=== PATIENT | male | born 1995 | race African-American/Black ===

== ENCOUNTER 2016-08-19 09:57 | Inpatient (IN) | payer OTHER ==
[2016-08-19 10:25] VITALS: BMI 25.0
--- NOTE | 2016-08-19 13:46 | HP ---
CIWA Score - CIWA Score Nausea/Vomitin-No Nausea/No Vomiting Muscle Tremors: 4-Moderate,w/Arms Extend Anxiety: 3 Agitation: 3 Paroxysmal Sweats: 3 Orientation: 0-Oriented Tacttile Disturbances: 0-None Auditory Disturbances: 0-None Visual Disturbances: 0-None Headache: 0-None Present CIWA-Ar Total Score: 13 Admission ROS BHS - HPI Chief Complaint: I need to stop drinking before it gets too late and cant stop. Allergies/Adverse Reactions: Allergies Allergy/AdvReac Type Severity Reaction Status Date / Time No Known Allergies Allergy Verified 08/19/16 13:40 History of Present Illness: pt is a 21yr old male with a history of alcohol and cannabis dependence seeking detox for treatment. Exam Limitations: No Limitations - Ebola screening Have you traveled outside of the country in the last 21 days: No Have you had contact with anyone from an Ebola affected area: No Have you been sick,other than usual withdrawal symptoms: No Do you have a fever: No - Review of Systems Constitutional: Loss of Appetite, Changes in sleep, Unintentional Wgt. Loss EENT: reports: No Symptoms Reported Respiratory: reports: No Symptoms reported Cardiac: reports: No Symptoms Reported GI: reports: Poor Appetite, Poor Fluid Intake : reports: No Symptoms Reported Integumentary: reports: No Symptoms Reported, Flushing, Rash (around his pubic area after shaving) Neuro: reports: Tingling, Tremors Endocrine: reports: Excessive Sweating, Flushing, Intolerance to Cold, Intolerance to Heat Hematology: reports: No Symptoms Reported Psychiatric: reports: No Sypmtoms Reported, Judgement Intact, Mood/Affect Appropiate, Orientated x3, Agitated, Anxious Other Systems: Reviewed and Negative Patient History - Patient Medical History Hx Anemia: No Hx Asthma: No Hx Chronic Obstructive Pulmonary Disease (COPD): No Hx Cancer: No Hx Cardiac Disorders: No Hx Congestive Heart Failure: No Hx Hypertension: No Hx Hypercholesterolemia: No Hx Pacemaker: No HX Cerebrovascular Accident: No Hx Seizures: No Hx Dementia: No Hx Diabetes: No Hx Gastrointestinal Disorders: No Hx Liver Disease: No Hx Genitourinary Disorders: No Hx Sexually Transmitted Disorders: No Hx Renal Disease (ESRD): No Hx Thyroid Disease: No Hx Human Immunodeficiency Virus (HIV): No (negative ) Hx Hepatitis C: No (negative) Hx Depression: Yes Hx Suicide Attempt: No (denies) Hx Bipolar Disorder: Yes Hx Schizophrenia: No - Patient Surgical History Past Surgical History: No Hx Neurologic Surgery: No Hx Cataract Extraction: No Hx Cardiac Surgery: No Hx Lung Surgery: No Hx Breast Surgery: No Hx Breast Biopsy: No Hx Abdominal Surgery: No Hx Appendectomy: No Hx Cholecystectomy: No Hx Genitourinary Surgery: No Hx Section: No Hx Orthopedic Surgery: No Anesthesia Reaction: No - PPD History Previous Implant?: Yes Documented Results: Negative w/o proof Implanted On Prior [facility] Admission?: No PPD to be Administered?: Yes - Reproductive History Patient is a Female of Child Bearing Age (11 -55 yrs old): No - Smoking Cessation Smoking history: Current every day smoker Have you smoked in the past 12 months: Yes Aproximately how many cigarettes per day: 10 Hx Chewing Tobacco Use: No Initiated information on smoking cessation: Yes 'Breaking Loose' booklet given: 08/19/16 - Substance & Tx. History Hx Alcohol Use: Yes Hx Substance Use: Yes Substance Use Type: Alcohol, Marijuana Hx Substance Use Treatment: No - Substances Abused Alcohol-beer/cognac Route: Oral Frequency: Daily Amount used: 3-6 pks./2 pts. Age of first use: 20 Date of Last Use: 08/19/16 Marijuana Route: Smoking Frequency: Daily Amount used: $50 Age of first use: 9 Date of Last Use: 08/19/16 Family Disease History - Family Disease History Family Disease History: Diabetes: Mother Admission Physical Exam BHS - Vital Signs Vital Signs: Vital Signs - 24 hr 08/19/16 10:22 Temperature 96.6 F L Pulse Rate 68 Respiratory 18 Rate Blood Pressure 119/75 - Physical General Appearance: Yes: Appropriately Dressed, Moderate Distress, Tremorous, Irritable, Sweating, Anxious HEENTM: Yes: Hearing grossly Normal Respiratory: Yes: Lungs Clear, Normal Breath Sounds, No Respiratory Distress Neck: Yes: No masses,lesions,Nodules Breast: Yes: Within Normal Limits Cardiology: Yes: Regular Rhythm, Regular Rate, S1, S2 Abdominal: Yes: Normal Bowel Sounds, Non Tender Genitourinary: Yes: Within Normal Limits Back: Yes: Normal Inspection Musculoskeletal: Yes: full range of Motion Extremities: Yes: Normal Capillary Refill, Normal Inspection, Tremors Neurological: Yes: Fully Oriented, Alert, Normal Response Integumentary: Yes: Normal Color Lymphatic: Yes: Within Normal Limits - Diagnostic (1) Alcohol dependence with uncomplicated withdrawal Current Visit: Yes Status: Chronic (2) Cannabis dependence Current Visit: Yes Status: Chronic (3) Nicotine dependence Current Visit: Yes Status: Chronic Qualifiers: Nicotine product type: cigarettes Substance use status: uncomplicated Qualified Code(s): F17.210 - Nicotine dependence, cigarettes, uncomplicated Cleared for Admission [facility] - Detox or Rehab [facility] Level of Care: Medically Managed Detox Regimen/Protocol: Librium [facility] Breath Alcohol Content Breath Alcohol Content: 0 Urine Drug Screen - Results Drug Screen Negative: No Urine Drug Screen Results: THC-Marijuana
[2016-08-19] MEDS ORDERED: MAG HYDROX/AL HYDROX/SIMETH 30 ML UNIT-DOSE CUP PO PRN (13:48)
[2016-08-19] MEDS ORDERED: ACETAMINOPHEN 325 MG TABLET (FP) PO PRN (13:48)
[2016-08-19] MEDS ORDERED: MENTHOL/PHENOL 1 EACH UD MM PRN (13:48)
[2016-08-19] MEDS ORDERED: NICOTINE POLACRILEX 4 MG GUM BC PRN (13:48)
[2016-08-19] MEDS ORDERED: MAGNESIUM CITRATE 300 ML BOTTLE PO PRN (13:48)
[2016-08-19] MEDS ORDERED: chlordiazePOXIDE HCL 25 MG CAPSULE PO PRN (13:48)
[2016-08-19] MEDS ORDERED: LOPERAMIDE HCL 2 MG CAPSULE PO PRN (13:48)
[2016-08-19] MEDS ORDERED: MAGNESIUM HYDROX 2400MG/30ML ORAL SUSPENSION 30 ML CUP PO PRN (13:48)
[2016-08-19] MEDS ORDERED: P-EPHED 60MG/TRIPROLIDI 2.5MG TABLET PO PRN (13:48)
[2016-08-19] MEDS ORDERED: IBUPROFEN 400 MG TABLET (FP) PO PRN (13:48)
[2016-08-19] MEDS ORDERED: hydrOXYzine PAMOATE 50 MG CAPSULE (FP) PO PRN (13:48)
[2016-08-19] MEDS ORDERED: guaiFENesin/D-METHORPHAN HB 10 ML UNIT-DOSE CUPS PO PRN (13:48)
[2016-08-19] MEDS ORDERED: chlordiazePOXIDE HCL 25 MG CAPSULE PO ONE (14:15)
[2016-08-19 14:38] LABS: HIV 1 & 2 AB NEGATIVE; HIV 1 AGp24 NEGATIVE
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
[2016-08-19] MEDS: chlordiazePOXIDE HCL 25 MG CAPSULE PO SCH ×2 (17:20→22:32)
[2016-08-19 20:37] LABS: URINE APPEARANCE CLEAR; URINE BILIRUBIN NEGATIVE (NEGATIVE); URINE BLOOD NEGATIVE (NEGATIVE); URINE COLOR LTYELLOW; URINE GLUCOSE (UA) NEGATIVE (NEGATIVE); URINE KETONE NEGATIVE (NEGATIVE); URINE LEUK ESTERASE NEGATIVE (NEGATIVE); URINE NITRITE NEGATIVE (NEGATIVE); URINE PROTEIN NEGATIVE (NEGATIVE); URINE UROBILINOGEN NEGATIVE E.U./dl (0.2-1.0)
[2016-08-19] MEDS: THIAMINE HCL 100 MG TABLET (FP) PO SCH (22:32)
[2016-08-20] MEDS: chlordiazePOXIDE HCL 25 MG CAPSULE PO SCH ×5 (05:49→22:42)
--- NOTE | 2016-08-20 09:37 | PN ---
[facility] CIWA - CIWA Score Nausea/Vomitin-No Nausea/No Vomiting Muscle Tremors: 3 Anxiety: 3 Agitation: 4-Moderately Restless Paroxysmal Sweats: 3 Orientation: 0-Oriented Tacttile Disturbances: 0-None Auditory Disturbances: 0-None Visual Disturbances: 0-None Headache: 0-None Present CIWA-Ar Total Score: 13 S Progress Note (SOAP) Subjective: Anxiety,tremors,sweating,interrupted sleep,restless Objective: 08/20/16 09:36 Vital Signs - 8 hr 08/20/16 08/20/16 08/20/16 03:23 06:33 09:32 Temperature 97.2 F L 96.2 F L Pulse Rate 56 L 82 Respiratory 18 16 20 Rate Blood Pressure 119/66 124/62 Laboratory Tests 08/19/16 08/19/16 12:30 19:30 Urine Color Ltyellow Urine Appearance Clear Urine pH 6.0 Ur Specific [place] 1.017 Urine Protein Negative Urine Glucose (UA) Negative Urine Ketones Negative Urine Blood Negative Urine Nitrite Negative Urine Bilirubin Negative Urine Urobilinogen Negative Ur Leukocyte Esterase Negative HIV 1&2 Antibody Screen Negative HIV P24 Antigen Negative labs noted Assessment: 08/20/16 09:37 Withdrawal sx. Plan: Continue detox
[2016-08-20 10:02] LABS: MCH 30.5 pg (25.7-33.7); MCHC 32.7 g/dl (32.0-35.9); MEAN CELL VOLUME 93.2 fl (80-96); MEAN PLT VOLUME 11.8 fl (7.5-11.1); PLATELET COUNT 132 K/MM3 (134-434); RDW 15.8 % (11.9-15.9); WHITE BLOOD COUNT 4.5 K/mm3 (4.0-10.0)
[2016-08-20] MEDS: PRENATAL VITAMINS W/ FOLIC ACID TABLET (FP) PO SCH (10:55)
[2016-08-20 11:20] LABS: ALBUMIN 4.2 g/dl (3.4-5.0); ALK PHOS 72 U/L (45-117); ANION GAP 7 (8-16); BILIRUBIN,TOTAL 0.7 mg/dL (0.2-1.0); CALCIUM 9.5 mg/dL (8.5-10.1); CO2 30 mmol/L (21-32); CREATININE 1.1 mg/dL (0.7-1.3); GLUCOSE,RANDOM 84 mg/dL (74-106); SGOT/AST 18 U/L (15-37); SGPT/ALT 25 U/L (12-78); TOT PROT 7.4 g/dl (6.4-8.2)
--- NOTE | 2016-08-20 17:18 | EKG ---
Test Reason : Blood Pressure : / mmHG Vent. Rate : 045 BPM Atrial Rate : 045 BPM P-R Int : 160 ms QRS Dur : 110 ms QT Int : 414 ms P-R-T Axes : 054 084 061 degrees QTc Int : 358 ms SINUS BRADYCARDIA OTHERWISE NORMAL ECG NO PREVIOUS ECGS AVAILABLE Confirmed by ALIS ALLEN MD ([id number]) on 08/20/2016 5:17:48 PM Referred By: Ceferino Marroquin Confirmed By:ALIS ALLEN MD
[2016-08-20] MEDS: THIAMINE HCL 100 MG TABLET (FP) PO SCH (22:42)
[2016-08-20] MEDS: diphenhydrAMINE HCL 50 MG CAPSULE PO PRN (22:42)
[2016-08-21] MEDS: chlordiazePOXIDE HCL 25 MG CAPSULE PO SCH ×2 (06:00→10:30)
[2016-08-21] MEDS: PRENATAL VITAMINS W/ FOLIC ACID TABLET (FP) PO SCH (10:29)
--- NOTE | 2016-08-21 12:59 | PN ---
[facility] CIWA - CIWA Score Nausea/Vomitin-No Nausea/No Vomiting Muscle Tremors: 2 Anxiety: 2 Agitation: 4-Moderately Restless Paroxysmal Sweats: 2 Orientation: 1-Uncertain about Date Tacttile Disturbances: 3-Moderate Itch/Numb/Burn Auditory Disturbances: 0-None Visual Disturbances: 0-None Headache: 0-None Present CIWA-Ar Total Score: 14 S Progress Note (SOAP) Subjective: Fatigue, Tremors. Objective: PT. A & O X 3 , OBSERVED AMBULATING ON UNIT. 08/21/16 12:58 Vital Signs Temperature 98.2 F 08/21/16 10:47 Pulse Rate 74 08/21/16 10:47 Respiratory Rate 18 08/21/16 10:47 Blood Pressure 123/68 08/21/16 10:47 O2 Sat by Pulse Oximetry (%) Laboratory Last Values WBC 4.5 K/mm3 (4.0-10.0) 08/20/16 06:00 RBC 5.03 M/mm3 (4.00-5.60) 08/20/16 06:00 Hgb 15.3 GM/dL (11.7-16.9) 08/20/16 06:00 Hct 46.9 % (35.4-49) 08/20/16 06:00 MCV 93.2 fl (80-96) 08/20/16 06:00 MCHC 32.7 g/dl (32.0-35.9) 08/20/16 06:00 RDW 15.8 % (11.9-15.9) 08/20/16 06:00 Plt Count 132 K/MM3 (134-434) L 08/20/16 06:00 MPV 11.8 fl (7.5-11.1) H 08/20/16 06:00 Sodium 143 mmol/L (136-145) 08/20/16 06:00 Potassium 4.1 mmol/L (3.5-5.1) 08/20/16 06:00 Chloride 106 mmol/L (98-107) 08/20/16 06:00 Carbon Dioxide 30 mmol/L (21-32) 08/20/16 06:00 Anion Gap 7 (8-16) L 08/20/16 06:00 BUN 8 mg/dL (7-18) 08/20/16 06:00 Creatinine 1.1 mg/dL (0.7-1.3) 08/20/16 06:00 Creat Clearance w eGFR > 60 (>60) 08/20/16 06:00 Random Glucose 84 mg/dL (74-106) 08/20/16 06:00 Calcium 9.5 mg/dL (8.5-10.1) 08/20/16 06:00 Total Bilirubin 0.7 mg/dL (0.2-1.0) 08/20/16 06:00 AST 18 U/L (15-37) 08/20/16 06:00 ALT 25 U/L (12-78) 08/20/16 06:00 Alkaline Phosphatase 72 U/L (45-117) 08/20/16 06:00 Total Protein 7.4 g/dl (6.4-8.2) 08/20/16 06:00 Albumin 4.2 g/dl (3.4-5.0) 08/20/16 06:00 Urine Color Ltyellow 08/19/16 19:30 Urine Appearance Clear 08/19/16 19:30 Urine pH 6.0 (5.0-8.0) 08/19/16 19:30 Ur Specific [place] 1.017 (1.001-1.035) 08/19/16 19:30 Urine Protein Negative (NEGATIVE) 08/19/16 19:30 Urine Glucose (UA) Negative (NEGATIVE) 08/19/16 19:30 Urine Ketones Negative (NEGATIVE) 08/19/16 19:30 Urine Blood Negative (NEGATIVE) 08/19/16 19:30 Urine Nitrite Negative (NEGATIVE) 08/19/16 19:30 Urine Bilirubin Negative (NEGATIVE) 08/19/16 19:30 Urine Urobilinogen Negative E.U./dl (0.2-1.0) 08/19/16 19:30 Ur Leukocyte Esterase Negative (NEGATIVE) 08/19/16 19:30 RPR Titer Nonreactive (NONREACTIVE) 08/20/16 06:00 HIV 1&2 Antibody Screen Negative 08/19/16 12:30 HIV P24 Antigen Negative 08/19/16 12:30 LABS NOTED. Assessment: 08/21/16 12:59 WITHDRAWAL SYMPTOMS. Plan: CONTINUE DETOX. ADVISED PATIENT TO FOLLOW-UP WITH [facility] / REHAB MEDICAL PROVIDER AFTER DISCHARGE FROM DETOX FOR GENERAL MEDICAL ASSESSMENT AND FOR ANY ABNORMAL ADMISSION LAB VALUES.
[2016-08-21] MEDS: AMMONIUM LACTATE 12% LOTION 225 GM BOTTLE TP SCH ×2 (13:44→22:38)
[2016-08-21] MEDS: chlordiazePOXIDE 5 MG CAPSULE PO SCH ×2 (17:35→22:39)
[2016-08-21] MEDS: THIAMINE HCL 100 MG TABLET (FP) PO SCH (22:38)
[2016-08-21] MEDS: diphenhydrAMINE HCL 50 MG CAPSULE PO PRN (22:39)
[2016-08-22] MEDS: chlordiazePOXIDE 5 MG CAPSULE PO SCH ×2 (06:57→10:51)
[2016-08-22 09:34] VITALS: BP 114/73; PULSE 50; TEMP 96
--- NOTE | 2016-08-22 10:12 | DS ---
[facility] Detox Discharge Summary Admission Date: 08/19/16 Discharge Date: 08/22/16 - History Present History: Alcohol Dependence, Cannabis Dependence Pertinent Past History: denies - Physical Exam Results Vital Signs: Vital Signs Temperature 96 F L 08/22/16 09:33 Pulse Rate 50 L 08/22/16 09:33 Respiratory Rate 20 08/22/16 09:33 Blood Pressure 114/73 08/22/16 09:33 O2 Sat by Pulse Oximetry (%) Pertinent Admission Physical Exam Findings: Withdrawal sx. Laboratory Last Values WBC 4.5 K/mm3 (4.0-10.0) 08/20/16 06:00 RBC 5.03 M/mm3 (4.00-5.60) 08/20/16 06:00 Hgb 15.3 GM/dL (11.7-16.9) 08/20/16 06:00 Hct 46.9 % (35.4-49) 08/20/16 06:00 MCV 93.2 fl (80-96) 08/20/16 06:00 MCHC 32.7 g/dl (32.0-35.9) 08/20/16 06:00 RDW 15.8 % (11.9-15.9) 08/20/16 06:00 Plt Count 132 K/MM3 (134-434) L 08/20/16 06:00 MPV 11.8 fl (7.5-11.1) H 08/20/16 06:00 Sodium 143 mmol/L (136-145) 08/20/16 06:00 Potassium 4.1 mmol/L (3.5-5.1) 08/20/16 06:00 Chloride 106 mmol/L (98-107) 08/20/16 06:00 Carbon Dioxide 30 mmol/L (21-32) 08/20/16 06:00 Anion Gap 7 (8-16) L 08/20/16 06:00 BUN 8 mg/dL (7-18) 08/20/16 06:00 Creatinine 1.1 mg/dL (0.7-1.3) 08/20/16 06:00 Creat Clearance w eGFR > 60 (>60) 08/20/16 06:00 Random Glucose 84 mg/dL (74-106) 08/20/16 06:00 Calcium 9.5 mg/dL (8.5-10.1) 08/20/16 06:00 Total Bilirubin 0.7 mg/dL (0.2-1.0) 08/20/16 06:00 AST 18 U/L (15-37) 08/20/16 06:00 ALT 25 U/L (12-78) 08/20/16 06:00 Alkaline Phosphatase 72 U/L (45-117) 08/20/16 06:00 Total Protein 7.4 g/dl (6.4-8.2) 08/20/16 06:00 Albumin 4.2 g/dl (3.4-5.0) 08/20/16 06:00 Urine Color Ltyellow 08/19/16 19:30 Urine Appearance Clear 08/19/16 19:30 Urine pH 6.0 (5.0-8.0) 08/19/16 19:30 Ur Specific [place] 1.017 (1.001-1.035) 08/19/16 19:30 Urine Protein Negative (NEGATIVE) 08/19/16 19:30 Urine Glucose (UA) Negative (NEGATIVE) 08/19/16 19:30 Urine Ketones Negative (NEGATIVE) 08/19/16 19:30 Urine Blood Negative (NEGATIVE) 08/19/16 19:30 Urine Nitrite Negative (NEGATIVE) 08/19/16 19:30 Urine Bilirubin Negative (NEGATIVE) 08/19/16 19:30 Urine Urobilinogen Negative E.U./dl (0.2-1.0) 08/19/16 19:30 Ur Leukocyte Esterase Negative (NEGATIVE) 08/19/16 19:30 RPR Titer Nonreactive (NONREACTIVE) 08/20/16 06:00 HIV 1&2 Antibody Screen Negative 08/19/16 12:30 HIV P24 Antigen Negative 08/19/16 12:30 labs noted - Treatment Hospital Course: Detox Protocol Followed, Detoxed Safely, Responded well, Discharged Condition Good, Rehab Referral Accepted Patient has Accepted a Rehab Referral to: Pt. is going to our Rehab today ( [facility]). - Medication Discharge Medications: Ambulatory Orders NK [No Known Home Medication] 08/20/16 - Diagnosis (1) Alcohol dependence with uncomplicated withdrawal Current Visit: Yes Status: Acute (2) Cannabis dependence Current Visit: Yes Status: Acute (3) Nicotine dependence Current Visit: Yes Status: Acute Qualifiers: Nicotine product type: cigarettes Substance use status: uncomplicated Qualified Code(s): F17.210 - Nicotine dependence, cigarettes, uncomplicated - AMA Did Patient Leave Against Medical Advice: No
[2016-08-22] MEDS: PRENATAL VITAMINS W/ FOLIC ACID TABLET (FP) PO SCH (10:51)
[2016-08-22] MEDS: AMMONIUM LACTATE 12% LOTION 225 GM BOTTLE TP SCH (10:52)
[2016-08-22] MEDS ORDERED: chlordiazePOXIDE HCL 10 MG CAPSULE PO SCH (17:00)
== END 2016-08-22 12:26 | disposition other institution (70) | DRG 774 ==
LOC: YASAS 09:57 → Y3N 12:07
PROVIDERS: ADMIT Internal Medicine Addiction Medicine; ATTEND Internal Medicine Addiction Medicine
PROC: HZ2ZZZZ Detoxification Services for Substance Abuse Treatment (ICD-10-PCS; principal; 2016-08-22)
DX: F10.230 Alcohol dependence with withdrawal, uncomplicated (principal); F14.20 Cocaine dependence, uncomplicated; F17.210 Nicotine dependence, cigarettes, uncomplicated
CPT/HCPCS: 36415; 80053; 81003; 85027; 86593; 87389; 93005; 93010

== ENCOUNTER 2016-08-22 13:41 | Inpatient (IN) | payer OTHER ==
[2016-08-22 14:12] VITALS: BMI 25.3
[2016-08-22] MEDS ORDERED: IBUPROFEN 400 MG TABLET (FP) PO PRN (15:10)
[2016-08-22] MEDS ORDERED: MAGNESIUM HYDROX 2400MG/30ML ORAL SUSPENSION 30 ML CUP PO PRN (15:10)
[2016-08-22] MEDS ORDERED: MENTHOL/PHENOL 1 EACH UD MM PRN (15:10)
[2016-08-22] MEDS ORDERED: LOPERAMIDE HCL 2 MG CAPSULE PO PRN (15:10)
[2016-08-22] MEDS ORDERED: ACETAMINOPHEN 325 MG TABLET (FP) PO PRN (15:10)
[2016-08-22] MEDS ORDERED: MAGNESIUM CITRATE 300 ML BOTTLE PO PRN (15:10)
[2016-08-22] MEDS ORDERED: guaiFENesin/D-METHORPHAN HB 10 ML UNIT-DOSE CUPS PO PRN (15:10)
[2016-08-22] MEDS ORDERED: P-EPHED 60MG/TRIPROLIDI 2.5MG TABLET PO PRN (15:10)
--- NOTE | 2016-08-22 15:12 | HP ---
[facility] Re[facility] Assess/Revision - Admission History Ad[facility] to Rehab [facility] Date of Admission to Rehab: 08/22/16 - Vital signs Vital Signs: Vital Signs Period Temp Pulse Resp BP Sys/King Pulse Ox Last 24 Hr 98.6 F 62 18 129/70 - Findings Detox History & Physical reviewed: Yes Concur with findings: Yes
[2016-08-22] MEDS: NICOTINE POLACRILEX 4 MG GUM BUC PRN ×2 (17:29→21:00)
[2016-08-22] MEDS: NICOTINE 21 MG/24 HOURS TOPICAL PATCH TD SCH (17:57)
[2016-08-22] MEDS: HYDROCORTISONE 1% TOPICAL CREAM 30 GM TUBE TP SCH ×2 (17:58→21:01)
[2016-08-22] MEDS: THIAMINE HCL 100 MG TABLET (FP) PO SCH (21:01)
[2016-08-23] MEDS: NICOTINE POLACRILEX 4 MG GUM BUC PRN ×2 (07:40→15:58)
[2016-08-23] MEDS: PRENATAL VITAMINS W/ FOLIC ACID TABLET (FP) PO SCH (09:05)
[2016-08-23] MEDS: NICOTINE 21 MG/24 HOURS TOPICAL PATCH TD SCH (09:06)
[2016-08-23] MEDS: HYDROCORTISONE 1% TOPICAL CREAM 30 GM TUBE TP SCH ×3 (09:06→21:21)
[2016-08-23] MEDS: diphenhydrAMINE HCL 50 MG CAPSULE PO PRN (21:21)
[2016-08-23] MEDS: THIAMINE HCL 100 MG TABLET (FP) PO SCH (21:21)
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
[2016-08-24] MEDS: NICOTINE POLACRILEX 4 MG GUM BUC PRN ×3 (08:40→21:15)
[2016-08-24] MEDS: PRENATAL VITAMINS W/ FOLIC ACID TABLET (FP) PO SCH (09:34)
[2016-08-24] MEDS: NICOTINE 21 MG/24 HOURS TOPICAL PATCH TD SCH (09:34)
[2016-08-24] MEDS: HYDROCORTISONE 1% TOPICAL CREAM 30 GM TUBE TP SCH ×4 (09:35→21:15)
[2016-08-24] MEDS ORDERED: PT OWN MED DRAWER 7, Y5N ONE (14:39)
[2016-08-24] MEDS: diphenhydrAMINE HCL 50 MG CAPSULE PO PRN (21:14)
[2016-08-24] MEDS: THIAMINE HCL 100 MG TABLET (FP) PO SCH (21:14)
[2016-08-25] MEDS: PRENATAL VITAMINS W/ FOLIC ACID TABLET (FP) PO SCH (09:42)
[2016-08-25] MEDS: NICOTINE 21 MG/24 HOURS TOPICAL PATCH TD SCH (09:42)
[2016-08-25] MEDS: NICOTINE POLACRILEX 4 MG GUM BUC PRN (09:42)
[2016-08-25] MEDS: HYDROCORTISONE 1% TOPICAL CREAM 30 GM TUBE TP SCH ×3 (09:42→22:15)
[2016-08-25] MEDS: THIAMINE HCL 100 MG TABLET (FP) PO SCH (21:08)
[2016-08-25] MEDS: QUEtiapine FUMARATE 100 MG TABLET (FP) PO SCH (21:08)
[2016-08-26] MEDS: NICOTINE POLACRILEX 4 MG GUM BUC PRN (09:39)
[2016-08-26] MEDS: NICOTINE 21 MG/24 HOURS TOPICAL PATCH TD SCH (09:39)
[2016-08-26] MEDS: PRENATAL VITAMINS W/ FOLIC ACID TABLET (FP) PO SCH (09:39)
[2016-08-26] MEDS: HYDROCORTISONE 1% TOPICAL CREAM 30 GM TUBE TP SCH ×4 (09:40→21:30)
[2016-08-26] MEDS: THIAMINE HCL 100 MG TABLET (FP) PO SCH (21:30)
[2016-08-26] MEDS: diphenhydrAMINE HCL 50 MG CAPSULE PO PRN (21:30)
[2016-08-26] MEDS: QUEtiapine FUMARATE 100 MG TABLET (FP) PO SCH (21:30)
[2016-08-27] MEDS ORDERED: PT OWN MED DRAWER 7, Y5N ONE (08:23)
[2016-08-27] MEDS: HYDROCORTISONE 1% TOPICAL CREAM 30 GM TUBE TP SCH ×3 (09:37→22:57)
[2016-08-27] MEDS: PRENATAL VITAMINS W/ FOLIC ACID TABLET (FP) PO SCH (09:37)
[2016-08-27] MEDS: NICOTINE 21 MG/24 HOURS TOPICAL PATCH TD SCH (09:37)
[2016-08-27] MEDS: diphenhydrAMINE HCL 50 MG CAPSULE PO PRN (21:05)
[2016-08-27] MEDS: QUEtiapine FUMARATE 100 MG TABLET (FP) PO SCH (21:05)
[2016-08-27] MEDS: THIAMINE HCL 100 MG TABLET (FP) PO SCH (21:05)
[2016-08-28] MEDS: PRENATAL VITAMINS W/ FOLIC ACID TABLET (FP) PO SCH (09:43)
[2016-08-28] MEDS: NICOTINE 21 MG/24 HOURS TOPICAL PATCH TD SCH (09:44)
[2016-08-28] MEDS: HYDROCORTISONE 1% TOPICAL CREAM 30 GM TUBE TP SCH ×3 (09:44→21:06)
[2016-08-28] MEDS: diphenhydrAMINE HCL 50 MG CAPSULE PO PRN (21:06)
[2016-08-28] MEDS: QUEtiapine FUMARATE 100 MG TABLET (FP) PO SCH (21:06)
[2016-08-28] MEDS: THIAMINE HCL 100 MG TABLET (FP) PO SCH (21:06)
[2016-08-29] MEDS: PRENATAL VITAMINS W/ FOLIC ACID TABLET (FP) PO SCH (10:06)
[2016-08-29] MEDS: NICOTINE 21 MG/24 HOURS TOPICAL PATCH TD SCH (10:06)
[2016-08-29] MEDS: HYDROCORTISONE 1% TOPICAL CREAM 30 GM TUBE TP SCH ×4 (10:07→21:18)
[2016-08-29] MEDS: diphenhydrAMINE HCL 50 MG CAPSULE PO PRN (21:17)
[2016-08-29] MEDS: THIAMINE HCL 100 MG TABLET (FP) PO SCH (21:17)
[2016-08-29] MEDS: QUEtiapine FUMARATE 100 MG TABLET (FP) PO SCH (21:17)
[2016-08-29] MEDS: NICOTINE POLACRILEX 4 MG GUM BUC PRN (21:55)
[2016-08-30] MEDS: NICOTINE 21 MG/24 HOURS TOPICAL PATCH TD SCH (09:35)
[2016-08-30] MEDS: PRENATAL VITAMINS W/ FOLIC ACID TABLET (FP) PO SCH (09:35)
[2016-08-30] MEDS: HYDROCORTISONE 1% TOPICAL CREAM 30 GM TUBE TP SCH ×4 (09:35→21:16)
[2016-08-30] MEDS ORDERED: PT OWN MED DRAWER 7, Y5N ONE (19:23)
[2016-08-30] MEDS: THIAMINE HCL 100 MG TABLET (FP) PO SCH (21:15)
[2016-08-30] MEDS: QUEtiapine FUMARATE 100 MG TABLET (FP) PO SCH (21:15)
[2016-08-30] MEDS: diphenhydrAMINE HCL 50 MG CAPSULE PO PRN (21:16)
[2016-08-31] MEDS ORDERED: PT OWN MED DRAWER 7, Y5N ONE (08:39)
[2016-08-31] MEDS: PRENATAL VITAMINS W/ FOLIC ACID TABLET (FP) PO SCH (09:38)
[2016-08-31] MEDS: NICOTINE 21 MG/24 HOURS TOPICAL PATCH TD SCH (09:39)
[2016-08-31] MEDS: HYDROCORTISONE 1% TOPICAL CREAM 30 GM TUBE TP SCH ×3 (09:39→21:07)
--- NOTE | 2016-08-31 11:49 | PN ---
Psychiatric Progress Note Vital Signs: Vital Signs Period Temp Pulse Resp BP Sys/King Pulse Ox Last 24 Hr 98.0 F 52 17-18 139/79 Date of Session: 08/31/16 Chief Complaint:: Insomnia HPI: Patient addressing Alcohol and Cannabis Dependence comorbid with Nicotine Dependence, ADHD, Bipolar Disorder and Borderline Intellectual Functioning Current Medications: Active Medications Generic Name Dose Route Start Last Admin Trade Name Freq PRN Reason Stop Dose Admin Acetaminophen 650 mg 08/22/16 15:10 Tylenol - PO Q4H PRN FEVER OR PAIN Al Hydroxide/Mg Hydroxide 30 ml 08/22/16 15:10 Mylanta Oral Suspension - PO Q6H PRN DYSPEPSIA Diphenhydramine HCl 50 mg 08/22/16 15:10 08/30/16 21:16 Benadryl - PO 50 mg HSMR1 PRN Administration FOR ITCHING Eucalyptus/Menthol/Phenol/Sorbitol 1 each 08/22/16 15:10 Cepastat Lozenge - MM Q4H PRN SORE THROAT Guaifenesin 10 ml 08/22/16 15:10 Robitussin Dm - PO Q6H PRN COUGH Hydrocortisone 1 applic 08/22/16 18:00 08/31/16 09:39 Hytone 1% Cream - TP Not Given QID FANTA Ibuprofen 400 mg 08/22/16 15:10 Motrin - PO Q6H PRN PAIN Loperamide HCl 4 mg 08/22/16 15:10 Imodium - PO Q6H PRN DIARRHEA Magnesium Hydroxide 30 ml 08/22/16 15:10 Milk Of Magnesia - PO DAILY PRN CONSTIPATION Nicotine 21 mg 08/22/16 17:45 08/31/16 09:39 Nicoderm Patch - TD Not Given DAILY [facility] Nicotine Polacrilex 4 mg 08/22/16 15:10 08/29/16 21:55 Nicorette Gum - BUC 4 mg Q2H PRN Administration NICOTINE REPLACEMENT RX Multivit/Folic Acid/Iron 1 tab 08/23/16 10:00 08/31/16 09:38 Vitamins (Sjr) - PO 1 tab DAILY FANTA Administration Pseudoephedrine/Triprolidine 1 combo 08/22/16 15:10 Actifed - PO TID PRN NASAL CONGESTION Quetiapine Fumarate 100 mg 08/25/16 22:00 08/30/16 21:15 Seroquel - PO 100 mg HS FANTA Administration Thiamine HCl 100 mg 08/22/16 22:00 08/30/16 21:15 Vitamin B1 - PO 100 mg HS FANTA Administration Medication(s) Change(s): Increase Seroquel dosage to 200 mg po HS Current Side Effect: No Lab tests ordered: Yes Lab tests reviewed: Yes Provider note:: Patient reports experiencing difficulty to sleep. Told headline writer that he could not sleep well despite taking Seroquel 100 mg po HS. Requests that dosage of medication be increased Total face to face time:: 25 Mental Status Exam - Mental Status Exam Alert and Oriented to: Time, Place, Person Cognitive Function: Fair Mood: Hopeful, Euthymic Affect: Appropriate Patient Behavior: Cooperative Speech Pattern: Clear Voice Loudness: Normal Thought Process: Intact Thought Disorder: Not Present Hallucinations: Denies Suicidal Ideation: Denies Homicidal Ideation: Denies Insight/Judgement: Fair Sleep: Poorly Appetite: Good Muscle strength/Tone: Normal Gait/Station: Normal Psychiatric Treatment Plan - Problem List (1) Alcohol dependence with uncomplicated withdrawal Current Visit: No (2) Cannabis dependence Current Visit: No (3) Nicotine dependence Current Visit: No Qualifiers: Nicotine product type: cigarettes Substance use status: uncomplicated Qualified Code(s): F17.210 - Nicotine dependence, cigarettes, uncomplicated (4) ADHD (attention deficit hyperactivity disorder) Current Visit: Yes (5) Bipolar disorder Current Visit: Yes Initial treatment plan: 1) Discontinue Seroquel 100 mg po HS. 2) Start Seroquel 200 mg po HS. 3) Monitor progress
[2016-08-31] MEDS: MAG HYDROX/AL HYDROX/SIMETH 30 ML UNIT-DOSE CUP PO PRN (12:57)
--- NOTE | 2016-08-31 14:19 | PN ---
S Progress Note (SOAP) Subjective: swollen upper gum , redness, Objective: 08/31/16 14:17 Vital Signs Temperature 98.0 F 08/31/16 06:58 Pulse Rate 52 L 08/31/16 06:58 Respiratory Rate 18 08/31/16 06:58 Blood Pressure 139/79 08/31/16 06:58 O2 Sat by Pulse Oximetry (%) upper gum redness , swelling Assessment: 08/31/16 14:17 gingivitis Plan: amxoicillin 500mg tid motrin 400mgtid salt water rinse
[2016-08-31] MEDS: AMOXICILLIN 500 MG CAPSULE (FP) PO SCH (21:06)
[2016-08-31] MEDS: QUEtiapine FUMARATE 200 MG TABLET PO SCH (21:06)
[2016-08-31] MEDS: THIAMINE HCL 100 MG TABLET (FP) PO SCH (21:06)
[2016-09-01] MEDS: AMOXICILLIN 500 MG CAPSULE (FP) PO SCH ×3 (06:01→21:09)
[2016-09-01] MEDS: NICOTINE 21 MG/24 HOURS TOPICAL PATCH TD SCH (09:38)
[2016-09-01] MEDS: PRENATAL VITAMINS W/ FOLIC ACID TABLET (FP) PO SCH (09:38)
[2016-09-01] MEDS: HYDROCORTISONE 1% TOPICAL CREAM 30 GM TUBE TP SCH ×4 (09:39→21:09)
[2016-09-01] MEDS: MAG HYDROX/AL HYDROX/SIMETH 30 ML UNIT-DOSE CUP PO PRN (19:01)
[2016-09-01] MEDS: QUEtiapine FUMARATE 200 MG TABLET PO SCH (21:08)
[2016-09-01] MEDS: THIAMINE HCL 100 MG TABLET (FP) PO SCH (21:08)
[2016-09-02] MEDS: AMOXICILLIN 500 MG CAPSULE (FP) PO SCH ×3 (05:54→21:36)
[2016-09-02] MEDS: PRENATAL VITAMINS W/ FOLIC ACID TABLET (FP) PO SCH (09:43)
[2016-09-02] MEDS: NICOTINE 21 MG/24 HOURS TOPICAL PATCH TD SCH (09:43)
[2016-09-02] MEDS: HYDROCORTISONE 1% TOPICAL CREAM 30 GM TUBE TP SCH ×4 (09:43→21:37)
[2016-09-02] MEDS: QUEtiapine FUMARATE 200 MG TABLET PO SCH (21:36)
[2016-09-02] MEDS: THIAMINE HCL 100 MG TABLET (FP) PO SCH (21:36)
[2016-09-03] MEDS: AMOXICILLIN 500 MG CAPSULE (FP) PO SCH ×3 (05:53→21:05)
[2016-09-03] MEDS: NICOTINE 21 MG/24 HOURS TOPICAL PATCH TD SCH (09:34)
[2016-09-03] MEDS: HYDROCORTISONE 1% TOPICAL CREAM 30 GM TUBE TP SCH ×4 (09:34→21:06)
[2016-09-03] MEDS: PRENATAL VITAMINS W/ FOLIC ACID TABLET (FP) PO SCH (09:35)
[2016-09-03] MEDS: THIAMINE HCL 100 MG TABLET (FP) PO SCH (21:05)
[2016-09-03] MEDS: diphenhydrAMINE HCL 50 MG CAPSULE PO PRN (21:05)
[2016-09-03] MEDS: QUEtiapine FUMARATE 200 MG TABLET PO SCH (21:05)
[2016-09-04] MEDS: AMOXICILLIN 500 MG CAPSULE (FP) PO SCH ×3 (06:24→21:42)
[2016-09-04] MEDS: PRENATAL VITAMINS W/ FOLIC ACID TABLET (FP) PO SCH (09:40)
[2016-09-04] MEDS: NICOTINE 21 MG/24 HOURS TOPICAL PATCH TD SCH (09:40)
[2016-09-04] MEDS: HYDROCORTISONE 1% TOPICAL CREAM 30 GM TUBE TP SCH ×4 (09:41→21:42)
[2016-09-04] MEDS: NICOTINE POLACRILEX 4 MG GUM BUC PRN (14:43)
[2016-09-04] MEDS: THIAMINE HCL 100 MG TABLET (FP) PO SCH (21:42)
[2016-09-04] MEDS: QUEtiapine FUMARATE 200 MG TABLET PO SCH (21:42)
[2016-09-04] MEDS: diphenhydrAMINE HCL 50 MG CAPSULE PO PRN (21:43)
[2016-09-05] MEDS: AMOXICILLIN 500 MG CAPSULE (FP) PO SCH ×3 (07:04→21:09)
[2016-09-05] MEDS ORDERED: PT OWN MED DRAWER 7, Y5N ONE (08:42)
[2016-09-05] MEDS: PRENATAL VITAMINS W/ FOLIC ACID TABLET (FP) PO SCH (09:33)
[2016-09-05] MEDS: HYDROCORTISONE 1% TOPICAL CREAM 30 GM TUBE TP SCH ×3 (09:34→21:09)
[2016-09-05] MEDS: NICOTINE POLACRILEX 4 MG GUM BUC PRN ×2 (09:34→13:10)
[2016-09-05] MEDS: NICOTINE 21 MG/24 HOURS TOPICAL PATCH TD SCH (09:34)
[2016-09-05] MEDS: diphenhydrAMINE HCL 50 MG CAPSULE PO PRN (21:08)
[2016-09-05] MEDS: QUEtiapine FUMARATE 200 MG TABLET PO SCH (21:08)
[2016-09-05] MEDS: THIAMINE HCL 100 MG TABLET (FP) PO SCH (21:08)
[2016-09-06] MEDS: AMOXICILLIN 500 MG CAPSULE (FP) PO SCH ×3 (06:19→21:29)
[2016-09-06] MEDS: PRENATAL VITAMINS W/ FOLIC ACID TABLET (FP) PO SCH (10:54)
[2016-09-06] MEDS: HYDROCORTISONE 1% TOPICAL CREAM 30 GM TUBE TP SCH ×3 (10:54→22:40)
[2016-09-06] MEDS: NICOTINE 21 MG/24 HOURS TOPICAL PATCH TD SCH (10:54)
[2016-09-06] MEDS: THIAMINE HCL 100 MG TABLET (FP) PO SCH (21:28)
[2016-09-06] MEDS: diphenhydrAMINE HCL 50 MG CAPSULE PO PRN (21:29)
[2016-09-06] MEDS: QUEtiapine FUMARATE 200 MG TABLET PO SCH (21:29)
[2016-09-07] MEDS: AMOXICILLIN 500 MG CAPSULE (FP) PO SCH ×3 (06:40→21:06)
[2016-09-07] MEDS: NICOTINE 21 MG/24 HOURS TOPICAL PATCH TD SCH (09:43)
[2016-09-07] MEDS: PRENATAL VITAMINS W/ FOLIC ACID TABLET (FP) PO SCH (09:43)
[2016-09-07] MEDS: HYDROCORTISONE 1% TOPICAL CREAM 30 GM TUBE TP SCH ×3 (09:43→23:57)
[2016-09-07] MEDS ORDERED: PT OWN MED DRAWER 7, Y5N ONE (15:20)
[2016-09-07] MEDS: NICOTINE POLACRILEX 4 MG GUM BUC PRN ×2 (15:25→21:08)
[2016-09-07] MEDS: THIAMINE HCL 100 MG TABLET (FP) PO SCH (21:06)
[2016-09-07] MEDS: QUEtiapine FUMARATE 200 MG TABLET PO SCH (21:06)
[2016-09-07] MEDS: diphenhydrAMINE HCL 50 MG CAPSULE PO PRN (21:07)
[2016-09-08] MEDS: NICOTINE POLACRILEX 4 MG GUM BUC PRN ×2 (08:57→12:58)
[2016-09-08] MEDS: PRENATAL VITAMINS W/ FOLIC ACID TABLET (FP) PO SCH (09:34)
[2016-09-08] MEDS: NICOTINE 21 MG/24 HOURS TOPICAL PATCH TD SCH (09:34)
[2016-09-08] MEDS: HYDROCORTISONE 1% TOPICAL CREAM 30 GM TUBE TP SCH ×3 (09:34→21:07)
[2016-09-08] MEDS: diphenhydrAMINE HCL 50 MG CAPSULE PO PRN (21:06)
[2016-09-08] MEDS: QUEtiapine FUMARATE 200 MG TABLET PO SCH (21:06)
[2016-09-08] MEDS: THIAMINE HCL 100 MG TABLET (FP) PO SCH (21:06)
[2016-09-09] MEDS: NICOTINE 21 MG/24 HOURS TOPICAL PATCH TD SCH (09:35)
[2016-09-09] MEDS: HYDROCORTISONE 1% TOPICAL CREAM 30 GM TUBE TP SCH ×3 (09:35→22:49)
[2016-09-09] MEDS: PRENATAL VITAMINS W/ FOLIC ACID TABLET (FP) PO SCH (09:35)
[2016-09-09] MEDS: NICOTINE POLACRILEX 4 MG GUM BUC PRN (12:35)
[2016-09-09] MEDS: QUEtiapine FUMARATE 200 MG TABLET PO SCH (21:37)
[2016-09-09] MEDS: diphenhydrAMINE HCL 50 MG CAPSULE PO PRN (21:37)
[2016-09-09] MEDS: THIAMINE HCL 100 MG TABLET (FP) PO SCH (21:37)
[2016-09-10] MEDS: NICOTINE POLACRILEX 4 MG GUM BUC PRN (07:11)
[2016-09-10] MEDS ORDERED: PT OWN MED DRAWER 7, Y5N ONE (08:16)
[2016-09-10] MEDS: PRENATAL VITAMINS W/ FOLIC ACID TABLET (FP) PO SCH (09:34)
[2016-09-10] MEDS: NICOTINE 21 MG/24 HOURS TOPICAL PATCH TD SCH (09:34)
[2016-09-10] MEDS: HYDROCORTISONE 1% TOPICAL CREAM 30 GM TUBE TP SCH ×3 (09:34→22:34)
--- NOTE | 2016-09-10 11:11 | PN ---
Psychiatric Progress Note Vital Signs: Vital Signs Period Temp Pulse Resp BP Sys/King Pulse Ox Last 24 Hr 98.6 F 59 16-18 143/79 Date of Session: 09/10/16 Chief Complaint:: Psychiatrist Discharge Note HPI: Patient addressing Alcohol and Cannabis Dependence comorbid with Nicotine Dependence, ADHD, Bipolar Disorder and Borderline Intellectual Functioning Current Medications: Active Medications Generic Name Dose Route Start Last Admin Trade Name Freq PRN Reason Stop Dose Admin Acetaminophen 650 mg 08/22/16 15:10 Tylenol - PO Q4H PRN FEVER OR PAIN Al Hydroxide/Mg Hydroxide 30 ml 08/22/16 15:10 09/01/16 19:01 Mylanta Oral Suspension - PO 30 ml Q6H PRN Administration DYSPEPSIA Diphenhydramine HCl 50 mg 08/22/16 15:10 09/09/16 21:37 Benadryl - PO 50 mg HSMR1 PRN Administration FOR ITCHING Eucalyptus/Menthol/Phenol/Sorbitol 1 each 08/22/16 15:10 Cepastat Lozenge - MM Q4H PRN SORE THROAT Guaifenesin 10 ml 08/22/16 15:10 Robitussin Dm - PO Q6H PRN COUGH Hydrocortisone 1 applic 08/22/16 18:00 09/10/16 09:34 Hytone 1% Cream - TP Not Given QID FANTA Ibuprofen 400 mg 08/22/16 15:10 Motrin - PO Q6H PRN PAIN Loperamide HCl 4 mg 08/22/16 15:10 Imodium - PO Q6H PRN DIARRHEA Magnesium Hydroxide 30 ml 08/22/16 15:10 Milk Of Magnesia - PO DAILY PRN CONSTIPATION Nicotine 21 mg 08/22/16 17:45 09/10/16 09:34 Nicoderm Patch - TD Not Given DAILY FANTA Nicotine Polacrilex 4 mg 08/22/16 15:10 09/10/16 07:11 Nicorette Gum - BUC 4 mg Q2H PRN Administration NICOTINE REPLACEMENT RX Multivit/Folic Acid/Iron 1 tab 08/23/16 10:00 09/10/16 09:34 Vitamins (Sjr) - PO 1 tab DAILY FANTA Administration Pseudoephedrine/Triprolidine 1 combo 08/22/16 15:10 Actifed - PO TID PRN NASAL CONGESTION Quetiapine Fumarate 200 mg 08/31/16 22:00 09/09/16 21:37 Seroquel - PO 200 mg HS FANTA Administration Thiamine HCl 100 mg 08/22/16 22:00 09/09/16 21:37 Vitamin B1 - PO 100 mg HS FANTA Administration Current Side Effect: No Lab tests ordered: Yes Lab tests reviewed: Yes Provider note:: Patient will complete this program on 09/11/16. He has met his treatment goals and will continue to address his issues in outpatient treatment at [facility] . 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 He responded well to Seroquel 200 mg po Hs. Script for 30 days supply of that medication will electronically be transmitted to [facility] at [address] [place] [address]. He is stable for discharge on 09/11/16 Total face to face time:: 35 Mental Status Exam - Mental Status Exam Alert and Oriented to: Time, Place, Person Cognitive Function: Fair Patient Appearance: Well Groomed Mood: Hopeful, Euthymic Affect: Appropriate Patient Behavior: Cooperative Speech Pattern: Clear Voice Loudness: Normal Thought Process: Intact Thought Disorder: Not Present Hallucinations: Denies Suicidal Ideation: Denies Homicidal Ideation: Denies Insight/Judgement: Fair Sleep: Fair Appetite: Good Muscle strength/Tone: Normal Gait/Station: Spastic Psychiatric Treatment Plan - Problem List (1) Alcohol dependence with uncomplicated withdrawal Current Visit: No (2) Cannabis dependence Current Visit: No (3) Nicotine dependence Current Visit: No Qualifiers: Nicotine product type: cigarettes Substance use status: uncomplicated Qualified Code(s): F17.210 - Nicotine dependence, cigarettes, uncomplicated (4) ADHD (attention deficit hyperactivity disorder) Current Visit: Yes (5) Bipolar disorder Current Visit: Yes Initial treatment plan: Patient will be discharged tomorrow and referred to [facility] for outpatient treatment
[2016-09-10] MEDS: THIAMINE HCL 100 MG TABLET (FP) PO SCH (21:04)
[2016-09-10] MEDS: QUEtiapine FUMARATE 200 MG TABLET PO SCH (21:04)
[2016-09-10] MEDS: diphenhydrAMINE HCL 50 MG CAPSULE PO PRN (21:05)
[2016-09-10] MEDS ORDERED: BACITRACIN 0.9 GM PACKET TP SCH (22:00)
[2016-09-11 07:09] VITALS: BP 136/82; PULSE 112; TEMP 98.8
== END 2016-09-11 08:30 | disposition home or self-care (01) | DRG 772 ==
LOC: YASAS 13:41 → Y3W 13:42
PROVIDERS: ADMIT Psychiatry & Neurology Psychiatry; ATTEND Psychiatry & Neurology Psychiatry
PROC: HZ42ZZZ Group Counseling for Substance Abuse Treatment, Cognitive-Behavioral (ICD-10-PCS; principal; 2016-09-11)
DX: F10.230 Alcohol dependence with withdrawal, uncomplicated (principal); F12.20 Cannabis dependence, uncomplicated; F17.210 Nicotine dependence, cigarettes, uncomplicated; F31.9 Bipolar disorder, unspecified; F90.9 Attention-deficit hyperactivity disorder, unspecified type